=== PATIENT | female | born 1990 | race Asian ===

== ENCOUNTER 2025-01-17 10:13 | Emergency (ER) | payer OTHER, SELFPAY ==
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
[2025-01-17 10:24] VITALS: BP 119/88; PULSE 70; RESP 16; TEMP 36.8; O2SAT 100; BMI 31.0
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
--- OUTSIDE RECORDS SUMMARY | 2025-01-17 10:46 | XMS_ITS | Clinical Summary ---
Author Organization [facility] [address] [place] [address] [address] [place] [address] Phone Care Team Providers Care Monorail Crane Operator Name Role Phone Adelaide Rondon MD Primary Care Provider [phone] Allergies No known active allergies Medications triamcinolone (KENALOG) 0.1 % cream Apply to affect area 2 times daily. 04/25/2023 Active Active Problems Problem Noted Date Diagnosed Date Obesity (BMI 30.0-34.9) 08/22/2022 Vitamin D deficiency 06/27/2016 Thrombocytopenia (CMS/HCC V24) 12/26/2013 Overview (09/23/2024): 3-14 no treatment indicated f/u 1m 6-15 No f/u done ,pt will mimi appt with [facility] Met with [facility] on 08/2019. Stable CBC. Recommended yearly surveilance; or sooner if bruising/bleeding occurs. Last Assessment & Plan: 3-14 no treatment indicated f/u 1m 6-15 No f/u done ,pt will mimi appt with [facility] Hirsutism 06/19/2011 Overview (09/23/2024): 9-11 patient was a no-show for consultation / Dr Garvin 2-[address] garvin/all labs Nl /pt opted no intervention.f/u PRN 6-15 prn hair remover/appliator Last Assessment & Plan: 06-18 patient was a no-show for consultation / Dr Garvin 2-[address] garvin/all labs Nl /pt opted no intervention.f/u PRN 6-15 prn hair remover/appliator Encounters Date Type Department Care Team Description 12/09/2024 2:00 PM EST Office Visit Obstetrics and Gynecology [address] [id number] Leslye Mortensen CNM Irregular menstrual bleeding (Primary Dx); Hirsutism from Last 3 Months Immunizations Name Administration Dates Next Due DTP 03/17/1998, 7,04/21/1993,02/19 [id number] (Pentacel) 2mo to less than 5yo 04/21/1994,06/22/1993,04/21/1993,02/19 H1N1 Inj Preservative Free 08/30/2009 HPV, Quadrivalent 04/11/2010,08/30/2009,03/25/20 09 Hepatitis A Pediatric (Havri x; Vaqta) 12mo to less than 19yo 02/10/2004,02/19/2003 Hepatitis B Pediatric (Enger ix B; Recombivax HB) to less than 20 yo 08/22/1997,02/19/1997,01/20/1997 Influenza trivalent, 0.5mL, preservative free (Fluarix; FluLaval; Fluzone) ages 6mo and older (Afluria) 3 years and older 07/20/2021,07/15/2019,06/26/2017,07/10,07/04/2014 Influenza, Unspecified 07/24/2022 MMR, measles mumps and rubel la Live (Priorix; M-M-R II) 12mo and older 01/20/1998,04/21/1994 Meningococcal MCV4P 02/17/2008 OPV 03/17/1998, 4,04/21/1993,02/19 PPD Test 01/14/2003 Td Tetanus diptheria (Tdvax) 7yo and older 02/17/2003 Tdap Tetanus diptheria acell ular pertussis (Boostrix; Adacel) 7yo and older 04/19/2018,02/17/2008 Typhoid VICPS (Typhim Vi) 2y o and older 02/28/2007,02/17/2003 Varicella live (Varivax) 12m o and older 10/22/1995 Surgical History Surgery Date Site/Laterality Comments OTHER SURGICAL HISTORY PROCEDURE: DENIES PREVIOUS SURGERY Medical History Medical History Date Comments Varicella without mention of complication age 4 DX:Varicella without mention of complication Contact dermatitis and other eczema due to other specified agent DX:Contact dermatitis and ot her eczema due to other specified agent Scoliosis 02/17/2008 DX:Scoliosis Hirsutism 06/19/2011 DX:Hirsutism Thrombocytopenia (CMS/HCC V24) 12/26/2013 D X:Thrombocytopenia (HCC); COMMENT: 12-19 no treatment indicated f/u 1m (chronic ITP) Family History Medical History Relation Name Comments Breast cancer Aunt paternal bilateral No Known Problems Brother x 1 Hyperlipidemia Father Heart attack Maternal Grandfather diabete s Hypertension Maternal Grandmother Hypertension Mother Sjorgen's Lung cancer Paternal Grandfather +smoker Other: PCOS Sister x 1 Diabetes Uncle 1 paternal Stroke Uncle 2 paternal Relation Name Status Comments Aunt paternal Brother x 1 Alive Usma 06/26/97 Father Alive 04/06/54 pakista [place] Maternal Grandfather Maternal Grandmother Alive Mother Alive 06/05/65 p[place]ista [place] Paternal Grandfather Paternal Grandmother Sister x 1 Alive Afza 03/30/88 Uncle 1 paternal Alive Uncle 2 paternal Social History Tobacco Use Types Packs/Day Years Used Date Smoking Tobacco: Never Smokeless Tobacco: Never Alcohol Use Standard Drinks/Week Comments No 0 (1 standard drink = 0.6 oz pur e alcohol) Comments No Sex and Gender Information Value Date Recorded Sex Assigned at Not on file Legal Sex Female 9:39 PM EDT Gender Identity Not on file Sexual Orientation Not on file Obstetrics History Para Term AB IAB SAB Ectopic Multiple Livin g Live Births 0 0 0 0 0 0 0 0 0 0 0 Last Filed Vital Signs Vital Sign Reading Time Taken Comments Blood Pressure 107/76 12/09/2024 2:11 PM EST Pulse 73 12/09/2024 2:11 PM EST Temperature - - Respiratory Rate 14 12/09/2024 2:11 PM EST Oxygen Saturation - - Inhaled Oxygen Concentration - - Weight 82.4 kg (181 lb 9.6 oz) 12/09/2024 2:11 P M EST Height 160 cm (5' 3 ) 12/09/2024 2:11 PM EST Body Mass Index 32.17 12/09/2024 2:11 PM EST Plan of Treatment Health Maintenance Due Date Last Done Comments Cervical Cancer Screening: Pap Smear 2013 Depression Screening 02/24/2022 HIV Screening 02/24/2022 Hepatitis C Screening 02/24/2022 Social Influencers of Health Screening 02/24/2022 COVID-19 Vaccine ( season) 2024 11/18/2021, 10/27/2020, 10/06/2020 Influenza Vaccine (Season Ended) 2025 08/02/2023, 07/24/2022, 07/20/2021, Additional history exists DTaP,Tdap,and Td Vaccines (9 - Td or Tdap) 04/19/2028 04/19/2018, 02/17/2008, 02/17/2003, Additional history exists Cholesterol Screening (Lipid Panel) 06/10/2029 06/10/2024, 06/10/2024, 02/05/2018 HIB Vaccines Completed 04/21/1994, 04/07, 06/22/1993, Additional history exists Varicella Vaccines Aged Out 10/22/1995 No longer eligible based on patient's age to complete this topic Hepatitis B Vaccines Completed 08/22/1997, 02/19/1997, 01/20/1997 MMR Vaccines Completed 01/20/1998, 04/21/1994 IPV Vaccines Completed 03/17/1998, 04/07, 04/21/1994, Additional history exists Hepatitis A Vaccines Completed 02/10/2004, 02/20/20 03 Meningococcal ACWY Vaccine Aged Out 02/17/2008 N o longer eligible based on patient's age to complete this topic HPV Vaccines Completed 04/11/2010, 08/09, 03/25/2009 Meningococcal B Vaccine Aged Out No l onger eligible based on patient's age to complete this topic Pneumococcal Vaccine: Pediatrics (0 to 5 Years) and At-Risk Patients (6 to 64 Years) Aged Out No longer eligible based on patient's age to complete this topic RSV Immunization Patients Under 20 months Aged Out No longer eligible based on patient's age to complete this topic Procedures Procedure Name Priority Date/Time Associated Diagnosis Comments LIPID PANEL Routine 06/10/2024 from Last 3 Months or Most Recently Relevant to Health Maintenance Results * Lipid panel (06/10/2024) LDL/HDL Ratio 2 0 - 4 Triglycerides 57 0 - 150 mg/dL Cholesterol 183 0 - 200 mg/dL HDL 76 >=40 mg/dL LDL Cholesterol 96 0 - 100 mg/dL Blood Venous blood specimen / Unknown [facility] Provider LAB BLOOD ORDERABLES Machelle l Result from Last 3 Months or Most Recently Relevant to Health Maintenance Insurance [employer] Care Teams Monorail Crane Operator Relationship Specialty Start Date End Date Adelaide Rondon MD [address] [place] [address] PCP - General Internal Medicine 10/21/21
[2025-01-17 11:34] LABS: Appearance Urine Clear; Color Urine Yellow; Glucose Urine UA Negative (Negative); Leukocyte Esterase Urine Negative (Negative); Nitrite Urine Negative (Negative); PH 6.5 (5.0-9.0); Specific Gravity - Urine <= 1.005 (1.005-1.025); Urine Blood Negative (Negative); Urine Ketones Negative (Negative); Urine Protein Negative (Neg-Trace)
[2025-01-17 12:04] VITALS: BP 117/70; PULSE 72; RESP 18; TEMP 36.9; O2SAT 99
[2025-01-17 12:12] LABS: Hematocrit 41.3 % (37.0-47.0); Hemoglobin 13.1 g/dl (12.0-16.0); Mean Corpuscular HGB Conc 31.7 g/dl (31.0-35.0); Mean Corpuscular Hemoglobin 25.1 pg (27.0-33.0); Mean Corpuscular Volume 79.1 fL (80.0-98.0); PLT CLUMP 1; Red Blood Count 5.22 X10*6/uL (4.20-5.50); Red Cell Distribution Width 13.1 % (11.0-16.0)
[2025-01-17 12:13] LABS: WBC ABN SCTR FOR CBC 1
[2025-01-17 12:29] LABS: Band Neutrophils Percent 4 % (3-5); Basophils Percent Manual 1 % (0-2); Eosinophils Percent Manual 3 % (0-4); Lymphocytes Percent Manual 35 % (20-40); Monocytes Percent Manual 4 % (2-11); Neutrophils Percent Manual 53 % (45-73)
[2025-01-17 12:30] LABS: Large Platelet PRESENT; Microcytosis 1+ (5-14) /OIF; Platelet Estimate DECREASED (NORMAL); Platelet Morphology Comment NOTED; RBC Morphology NOTED
[2025-01-17 12:31] LABS: Basophils Abs Manual 0.1 X10*3/uL (0.0-0.2); Eosinophils Absolute Manual 0.2 X10*3/uL (0.0-0.4); Lymphocytes Absolute Manual 2.2 X10*3/uL (1.2-4.9); Monocytes Absolute Manual 0.3 X10*3/uL (0.1-1.2); Neutrophils Absolute Manual 3.6 X10*3/uL (2.0-8.3); Platelet Count 90 X10*3/uL (160-400); White Blood Count 6.3 X10*3/uL (4.8-10.8)
[2025-01-17 13:26] LABS: Alanine Aminotransferase 16 U/L (0-31); Albumin Level 4.4 g/dL (3.5-5.0); Alkaline Phosphatase 58 U/L (39-117); Anion Gap 11 (12-20); Aspartate Amino Transferase 19 U/L (5-31); Bilirubin Direct 0.1 mg/dL (0.0-0.5); Bilirubin Total 0.4 mg/dL (0.0-1.0); Blood Urea Nitrogen 11 mg/dL (9-16); Calcium 9.5 mg/dL (8.4-10.2); Carbon Dioxide 26 mmol/L (22-29); Chloride 108 mmol/L (96-108); Creatinine Clr Calc Pharmacy 101.9; Estimated Glomerular Filt Rate > 60; Glucose Random 87 mg/dL (60-115); Magnesium 1.9 mg/dL (1.6-2.6); Potassium 3.9 mmol/L (3.3-5.1); Sodium 141 mmol/L (135-145); Total Protein 8.2 g/dL (6.5-8.0)
[2025-01-17 14:22] LABS: UPreg QC Valid YES; Urine Pregnancy NEGATIVE (NEGATIVE)
[2025-01-17] MEDS: iohexoL 350 MG/ML 100 ML INFUS..BTL IV (14:44)
[2025-01-17 15:16] VITALS: BP 111/72; PULSE 75; RESP 19; TEMP 36.9; O2SAT 79
[2025-01-17 15:37] VITALS: BP 121/65; PULSE 76; RESP 19; TEMP 36.9; O2SAT 79
== END 2025-01-17 15:39 | disposition home or self-care (01) ==
PROVIDERS: Emergency Provider Emergency Medicine
DX: S29.012A Strain of muscle and tendon of back wall of thorax, initial encounter (principal); S13.4XXA Sprain of ligaments of cervical spine, initial encounter; R07.89 Other chest pain; M54.2 Cervicalgia; R51.9 Headache, unspecified; V43.52XA Car driver injured in collision with other type car in traffic accident, initial encounter; Y93.9 Activity, unspecified; Y92.488 Other paved roadways as the place of occurrence of the external cause; Y99.8 Other external cause status; Z79.899 Other long term (current) drug therapy
CPT/HCPCS: 36415; 70498; 71046; 72072; 80048; 80076; 81003; 81025; 83735; 85007; 85027; 99284; Q9967

== ENCOUNTER → 2025-01-17 10:28 | Outpatient (BNV) | payer OTHER, SELFPAY | PROVIDERS: Emergency Provider Emergency Medicine; Visit Provider Radiology Vascular & Interventional Radiology | DX: M54.2 Cervicalgia (principal); M54.6 Pain in thoracic spine; S20.212A Contusion of left front wall of thorax, initial encounter | CPT/HCPCS: 70498; 71046; 72072 ==